=== PATIENT | male | born 1960 ===

== ENCOUNTER 2022-03-16 22:40 | Emergency (ER) | payer SELFPAY | END 2022-03-17 | disposition left against medical advice (07) | LOC: ED 22:40 | DX: R10.9 Unspecified abdominal pain (principal); Z53.21 Procedure and treatment not carried out due to patient leaving prior to being seen by health care provider ==

== ENCOUNTER 2022-03-22 13:11 | Inpatient (IN) | payer SELFPAY ==
[2022-03-22] MEDS ORDERED: SODIUM CHLORIDE 0.9% 1000 ML 1,000 ML IV ONE (14:16)
[2022-03-22 14:37] LABS: Basophils % (Auto) 0.3 % (0.0-1.8); Eosinophils % (Auto) 0.2 % (0.0-4.3); Hematocrit 43.5 % (35.5-45.6); Hemoglobin 13.9 gm/dl (11.8-15.2); Lymphocytes # (Auto) 1.5 K/mm3 (1.2-5.4); Lymphocytes % (Auto) 17.6 % (13.4-35.0); Mean Corpuscular HGB Conc 32 % (32-34); Mean Corpuscular Volume 96 fl (84-94); Monocytes # (Auto) 0.8 K/mm3 (0.0-0.8); Monocytes % (Auto) 9.4 % (0.0-7.3); Platelet Count 325 K/mm3 (140-440); Red Blood Count 4.51 M/mm3 (3.65-5.03); Red Cell Distribution Width 14.2 % (13.2-15.2)
--- NOTE | 2022-03-22 15:14 | XRay Report ---
CHEST 1 VIEW 03/22/2022 2:33 PM INDICATION / CLINICAL INFORMATION: unresponsive. COMPARISON: None available. FINDINGS: SUPPORT DEVICES: None. HEART / MEDIASTINUM: There is mild cardiac enlargement. LUNGS / PLEURA: No significant pulmonary or pleural abnormality. No pneumothorax. ADDITIONAL FINDINGS: Chronic right lateral rib fractures are noted. IMPRESSION: Mild cardiomegaly. Lungs clear. Signer Name: Bogdan Mello Jr, MD Signed: 03/22/2022 3:06 PM Workstation Name: [id number]
[2022-03-22 15:31] LABS: Alanine Aminotransferase 34 units/L (7-56); Albumin 4.7 g/dL (3.9-5); BUN/Creatinine Ratio 20; Blood Urea Nitrogen 18 mg/dL (9-20); Calcium 9.2 mg/dL (8.4-10.2); Hemolysis Index 8
--- NOTE | 2022-03-22 15:43 | Cat Scan Report ---
CT HEAD WITHOUT CONTRAST INDICATION / CLINICAL INFORMATION: unresponsive. TECHNIQUE: Axial imaging performed from the skull apex through the skull base without the use of cont rast. Sagittal and coronal reformatted images. All CT scans at this location are performed using CT dose reduction for ALARA by means of automated exposure control. COMPARISON: None available. FINDINGS: CEREBRAL PARENCHYMA: No acute parenchymal abnormality is identified. There is moderate hypoattenuatio n throughout the white matter consistent with chronic microvascular ischemic disease. Chronic lacunar infarct in the left anterior basal ganglia measures 7-8 mm. No large chronic infarct. HEMORRHAGE: None. EXTRA-AXIAL SPACES: Normal in size and morphology for the patient's age. VENTRICULAR SYSTEM: Normal in size and morphology for the patient's age. MIDLINE SHIFT OR HERNIATION: None. CEREBELLUM / BRAINSTEM: No significant abnormality. CALVARIUM: No significant abnormality. ORBITS: Normal as visualized. PARANASAL SINUSES / MASTOID AIR CELLS: Normal as visualized. SOFT TISSUES of HEAD: No significant abnormality. ADDITIONAL FINDINGS: None. IMPRESSION: No acute intracranial abnormality. Moderate chronic white matter changes. Chronic lacunar infarct in the left basal ganglia. Signer Name: Bogdan Mello Jr, MD Signed: 03/22/2022 3:39 PM Workstation Name: [id number]
[2022-03-22] MEDS ORDERED: cefTRIAXone/NS 1 GM/50 ML 1 GM/50 ML BAG IV ONE (16:45)
--- NOTE | 2022-03-22 16:54 | Emergency Department Report ---
ED General Adult HPI - General Chief complaint: Overdose Stated complaint: OD Time Seen by Provider: 03/22/22 13:49 Source: patient, EMS Mode of arrival: Stretcher Limitations: No Limitations - History of Present Illness Initial comments: Patient presents with complaints of an episode of loss of consciousness that was witnessed by his daughter, who is present @ the bedside and giving collateral hx. Per her, it lasted till EMS arrived and she was performing CPR. It was with convulsive jerking, bowel/urinary incontinence, tongue/lip biting. Patient de nies any dizziness, numbness, weakness VILLASENOR, CP, SOB, palpitations before or after the episode. Also denies any vomiting, diarrhea, hematochezia, bloody or black tarry stools. Per EMS, patient's was breathing 6 breaths/min. He received narcan 3 mg IV total, after which he woke up. - Related Data Allergies Allergy/AdvReac Type Severity Reaction Status Date / Time No Known Allergies Allergy Verified 03/22/22 13:14 ED Review of Systems ROS: Stated complaint: OD Other details as noted in HPI Comment: All other systems reviewed and negative Constitutional: denies: chills, fever ED Past Medical Hx - Past Medical History Previous Medical History?: No ED Physical Exam - General Limitations: No Limitations General appearance: alert, in no apparent distress - Head Head exam: Present: atraumatic, normocephalic - Eye Eye exam: Present: PERRL, EOMI - ENT ENT exam: Present: mucous membranes moist, other (airway patent) - Neck Neck exam: Present: other (supple; no JVD) - Respiratory Respiratory exam: Present: other (good air entry, nml I:E, CTAB, no use of ) - Cardiovascular Cardiovascular Exam: Present: regular rate. Absent: rubs, gallop - GI/Abdominal GI/Abdominal exam: Present: soft, normal bowel sounds. Absent: distended, tenderness - Extremities Exam Extremities exam: Present: full ROM. Absent: tenderness - Back Exam Back exam: Present: full ROM. Absent: tenderness - Neurological Exam Neurological exam: Present: alert, oriented X3, CN II-XII intact, other (GCS 15/15 ([id number])). Absent: motor sensory deficit ED Course Vital Signs 03/22/22 03/22/22 03/22/22 13:12 15:57 16:00 Pulse Rate 96 H 83 83 Respiratory 12 13 Rate Blood Pressure 139/95 Blood Pressure 170/100 [Left] O2 Sat by Pulse 98 94 89 Oximetry 03/22/22 03/22/22 03/22/22 16:12 16:16 16:30 Pulse Rate 85 82 85 Respiratory 16 11 L 11 L Rate Blood Pressure 139/95 138/91 Blood Pressure [Left] O2 Sat by Pulse 95 83 L 94 Oximetry 03/22/22 03/22/22 16:46 17:00 Pulse Rate 84 87 Respiratory 9 L 9 L Rate Blood Pressure 138/91 152/111 Blood Pressure [Left] O2 Sat by Pulse 91 93 Oximetry ED Medical Decision Making - Lab Data Result diagrams: 03/22/22 14:22 03/22/22 14:22 Laboratory Results - last 24 hr 03/22/22 03/22/22 03/22/22 14:22 14:22 14:22 WBC 8.7 RBC 4.51 Hgb 13.9 Hct 43.5 MCV 96 H MCH 31 MCHC 32 RDW 14.2 Plt Count 325 Lymph % (Auto) 17.6 [place] % (Auto) 9.4 H Eos % (Auto) 0.2 Baso % (Auto) 0.3 Lymph # (Auto) 1.5 [place] # (Auto) 0.8 Eos # (Auto) 0.0 Baso # (Auto) 0.0 Seg Neutrophils % 72.5 H Seg Neutrophils # 6.3 Sodium 139 Potassium 3.7 Chloride 100.3 Carbon Dioxide 19 L Anion Gap 23 BUN 18 Creatinine 0.9 Estimated GFR > 60 BUN/Creatinine Ratio 20 Glucose 144 H Lactic Acid 2.90 H* Calcium 9.2 Total Bilirubin 0.40 AST 52 H ALT 34 Alkaline Phosphatase 96 Total Creatine Kinase 491 H Troponin T < 0.010 Total Protein 7.3 Albumin 4.7 Albumin/Globulin Ratio 1.8 Urine Color Urine Turbidity Urine pH Ur Specific [place] Urine Protein Urine Glucose (UA) Urine Ketones Urine Blood Urine Nitrite Urine Bilirubin Urine Urobilinogen Ur Leukocyte Esterase Urine WBC (Auto) Urine RBC (Auto) U Epithel Cells (Auto) Hyaline Casts Urine Mucus Urine Opiates Screen Urine Methadone Screen Ur Barbiturates Screen Ur Phencyclidine Scrn Ur Amphetamines Screen U Benzodiazepines Scrn Urine Cocaine Screen U Marijuana (THC) Screen 03/22/22 03/22/22 03/22/22 17:19 17:19 17:19 WBC RBC Hgb Hct MCV MCH MCHC RDW Plt Count Lymph % (Auto) [place] % (Auto) Eos % (Auto) Baso % (Auto) Lymph # (Auto) [place] # (Auto) Eos # (Auto) Baso # (Auto) Seg Neutrophils % Seg Neutrophils # Sodium Potassium Chloride Carbon Dioxide Anion Gap BUN Creatinine Estimated GFR BUN/Creatinine Ratio Glucose Lactic Acid 1.80 Calcium Total Bilirubin AST ALT Alkaline Phosphatase Total Creatine Kinase Troponin T Total Protein Albumin Albumin/Globulin Ratio Urine Color Yellow Urine Turbidity Clear Urine pH 5.0 Ur Specific [place] 1.017 Urine Protein 100 mg/dl Urine Glucose (UA) 50 Urine Ketones Neg Urine Blood Neg Urine Nitrite Neg Urine Bilirubin Neg Urine Urobilinogen < 2.0 Ur Leukocyte Esterase Neg Urine WBC (Auto) 4.0 Urine RBC (Auto) 3.0 U Epithel Cells (Auto) 1.0 Hyaline Casts 21 Urine Mucus Few Urine Opiates Screen Presumptive negative Urine Methadone Screen Presumptive negative Ur Barbiturates Screen Presumptive negative Ur Phencyclidine Scrn Presumptive negative Ur Amphetamines Screen Presumptive positive U Benzodiazepines Scrn Presumptive negative Urine Cocaine Screen Presumptive negative U Marijuana (THC) Screen Presumptive positive 03/22/22 17:19 WBC RBC Hgb Hct MCV MCH MCHC RDW Plt Count Lymph % (Auto) [place] % (Auto) Eos % (Auto) Baso % (Auto) Lymph # (Auto) [place] # (Auto) Eos # (Auto) Baso # (Auto) Seg Neutrophils % Seg Neutrophils # Sodium Potassium Chloride Carbon Dioxide Anion Gap BUN Creatinine Estimated GFR BUN/Creatinine Ratio Glucose Lactic Acid Calcium Total Bilirubin AST ALT Alkaline Phosphatase Total Creatine Kinase Troponin T 0.020 Total Protein Albumin Albumin/Globulin Ratio Urine Color Urine Turbidity Urine pH Ur Specific [place] Urine Protein Urine Glucose (UA) Urine Ketones Urine Blood Urine Nitrite Urine Bilirubin Urine Urobilinogen Ur Leukocyte Esterase Urine WBC (Auto) Urine RBC (Auto) U Epithel Cells (Auto) Hyaline Casts Urine Mucus Urine Opiates Screen Urine Methadone Screen Ur Barbiturates Screen Ur Phencyclidine Scrn Ur Amphetamines Screen U Benzodiazepines Scrn Urine Cocaine Screen U Marijuana (THC) Screen CXR: no acute cardiopulmonary process EKG #1 @ 14:34-> HR 78, SR, nml CT, narrow QRS, LVH by R in I, ST elevation > 1 mm in V2, <1 mm in V3 with reciprocal J point depressions in II, III, aVF, v5 and V6 EKG #2 @ 17:34-> HR 78, SR, nml CT, narrow QRS, LVH by R in I, ST elevation > 1 mm in V2, <1 mm in V3 with reciprocal J point depressions in II, III, aVF, V4 - V6 - Medical Decision Making Dr. 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 He recommends patient does not meet STEMI criteria @ this time. Critical care attestation.: If time is entered above; I have spent that time in minutes in the direct care of this critically ill patient, excluding procedure time. ED Disposition Clinical Impression: Unresponsive, Abnormal EKG Disposition: ADMITTED INPATIENT Is pt being admited?: Yes Condition: Stable Referrals: PRIMARY CARE, [Primary Care Provider] - 3-5 Days Time of Disposition: 18:00 (Patient admitted to Dr. Gauthier. Sign out was given by me to the admitting physician.)
[2022-03-22 17:35] LABS: Bilirubin,Urine NEG (Negative); Blood,Urine NEG (Negative); Color,Urine Yellow (Yellow); Hyaline Casts,Urine 21 /LPF; Mucus,Urine FEW /HPF; Urobilinogen,Urine < 2.0 mg/dL (<2.0)
[2022-03-22 17:39] LABS: Amphetamine Screen,Urine PRESUMPTIVE POSITIVE; Benzodiazepines Screen,Urine PRESUMPTIVE NEGATIVE; Cannabinoid Screen,Urine PRESUMPTIVE POSITIVE; Cocaine Screen,Urine PRESUMPTIVE NEGATIVE; Methadone Screen,Urine PRESUMPTIVE NEGATIVE; Opiate Screen,Urine PRESUMPTIVE NEGATIVE
[2022-03-22] MEDS ORDERED: oxyCODONE /ACETAMINOPHEN 5-325MG TAB PO PRN (22:07)
[2022-03-22] MEDS ORDERED: HEPARIN 10,000 UNITS/10 ML VIAL IV PRN (22:30)
[2022-03-22] MEDS ORDERED: ACETAMINOPHEN 325 MG TAB PO PRN (23:00)
[2022-03-22] MEDS ORDERED: ONDANSETRON 4 MG/2 ML INJ IV PRN (23:00)
[2022-03-22] MEDS ORDERED: METOCLOPRAMIDE 10 MG/2 ML INJ IV PRN (23:00)
[2022-03-22 23:23] LABS: Hematocrit 43.6 % (35.5-45.6); Hemoglobin 13.9 gm/dl (11.8-15.2)
[2022-03-22 23:32] LABS: INR 0.86 (0.87-1.13); Partial Thromboplastin Time 29.1 Sec. (24.2-36.6)
[2022-03-22 23:39] LABS: Creatine Kinase MB 9.6 ng/mL (0.0-4.0)
[2022-03-23 02:09] LABS: Chol/HDL Ratio 3.8 %
[2022-03-23] MEDS: HEPARIN/ 0.45% NACL DRIP 25,000 UNIT/500 ML BAG IV SCH (03:01)
[2022-03-23 06:28] LABS: Basophils % (Auto) 0.4 % (0.0-1.8); Eosinophils # (Auto) 0.1 K/mm3 (0.0-0.4); Eosinophils % (Auto) 0.7 % (0.0-4.3); Hematocrit 40.8 % (35.5-45.6); Hemoglobin 13.2 gm/dl (11.8-15.2); Lymphocytes # (Auto) 2.5 K/mm3 (1.2-5.4); Lymphocytes % (Auto) 30.3 % (13.4-35.0); Mean Corpuscular HGB Conc 32 % (32-34); Mean Corpuscular Volume 96 fl (84-94); Monocytes # (Auto) 1.1 K/mm3 (0.0-0.8); Monocytes % (Auto) 13.8 % (0.0-7.3); Platelet Count 308 K/mm3 (140-440); Red Blood Count 4.24 M/mm3 (3.65-5.03); Red Cell Distribution Width 14.4 % (13.2-15.2)
[2022-03-23] MEDS: MORPHINE 2 MG/1 ML INJ IV PRN ×2 (06:38→11:07)
[2022-03-23 06:48] LABS: Creatine Kinase MB 11.4 ng/mL (0.0-4.0)
[2022-03-23 06:50] LABS: Alanine Aminotransferase 30 units/L (7-56); Albumin 4.4 g/dL (3.9-5); BUN/Creatinine Ratio 21; Blood Urea Nitrogen 17 mg/dL (9-20); Calcium 9.3 mg/dL (8.4-10.2); Hemolysis Index 25
--- NOTE | 2022-03-23 07:35 | History and Physical Report ---
History of Present Illness Date of examination: 03/22/22 Date of admission: 03/22/22 22:07 Chief complaint: Last dose of maintenance History of present illness: 61-year-old with no significant past medical history was found with less responsiveness. Witnessed by daughter. Patient started CPR until EMS arrived. As per granddaughter patient had convulsive jerking movements and bowel and urinary incontinence and tongue/lip biting. This could not be confirmed by me during my history taking. No nausea or vomiting. No chest pain. Syncope present. Patient does marijuana on a regular basis.Cardiac history in the past. Had 1 stent 8 months ago Not on any medications. No chest pain. Lactic acid was elevated. Apparently unresponsive for 5 minutes. Had a stent 8 months ago secondary to [place] in [place]. Also a skin graft on the right heel secondary to injury. 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 Skin no rash no itching Psychiatric no depression no homicidal or suicidal tendencies Hematologic no lymphedema or bruising Endocrine no polydipsia no polyuria no cold intolerance no heat intolerance Medications and Allergies Allergies Allergy/AdvReac Type Severity Reaction Status Date / Time No Known Allergies Allergy Verified 03/22/22 13:14 Active Meds: Active Medications Acetaminophen (Acetaminophen 325 Mg Tab) 650 mg PO Q4H PRN PRN Reason: Pain MILD(1-3)/Fever >100.5/VILLASENOR Famotidine (Famotidine 20 Mg/2 Ml Inj) 20 mg IV BID TATYANA Heparin Sodium (Porcine) (Heparin 10,000 Units/10 Ml Vial) 2,400 unit 40 unit/kg (2400 unit) IV Q6H PRN PRN Reason: Anti-Xa Assay < 0.1 units/ml Dextrose/Sodium Chloride (D5ns) 1,000 mls @ 100 mls/hr IV DIRECT TATYANA Heparin Sodium/Sodium Chloride (Heparin/ 0.45% Nacl-25,000 Unit/500 Ml) 25,000 unit in 500 mls @ 18 mls/hr IV TITRATE TATYANA; Protocol Last Admin: 03/23/22 03:01 Dose: 900 units/hr, 18 mls/hr Metoclopramide HCl (Metoclopramide 10 Mg/2 Ml Inj) 10 mg IV Q6H PRN PRN Reason: Nausea And Vomiting Morphine Sulfate (Morphine 2 Mg/1 Ml Inj) 2 mg IV Q4H PRN PRN Reason: Pain, Moderate (4-6) Last Admin: 03/23/22 06:38 Dose: 2 mg Ondansetron HCl (Ondansetron 4 Mg/2 Ml Inj) 4 mg IV Q8H PRN PRN Reason: Nausea And Vomiting Oxycodone/Acetaminophen (Oxycodone /Acetaminophen 5-325mg Tab) 1 tab PO Q6H PRN PRN Reason: Pain, Moderate (4-6) Sodium Chloride (Sodium Chloride 0.9% 10 Ml Flush Syringe) 10 ml IV BID TATYANA Sodium Chloride (Sodium Chloride 0.9% 10 Ml Flush Syringe) 10 ml IV PRN PRN PRN Reason: LINE FLUSH Exam - Constitutional Vitals: Temp Pulse Resp BP Pulse Ox 97.5 F L 79 16 158/98 92 03/23/22 04:00 03/23/22 04:00 03/23/22 04:00 03/23/22 04:00 03/23/22 04:00 General appearance: Present: no acute distress, well-nourished - EENT Eyes: Present: PERRL ENT: hearing intact, clear oral mucosa - Neck Neck: Present: supple, normal ROM - Respiratory Respiratory effort: normal Respiratory: bilateral: CTA - Cardiovascular Heart rate: 83 Rhythm: regular Heart Sounds: Present: S1 & S2. Absent: rub, click - Extremities Extremities: pulses symmetrical, No edema Peripheral Pulses: within normal limits - Abdominal General gastrointestinal: Present: soft, non-tender, non-distended, normal bowel sounds Male genitourinary: Present: normal - Integumentary Integumentary: Present: clear, warm, dry - Musculoskeletal Musculoskeletal: gait normal, strength equal bilaterally - Psychiatric Psychiatric: appropriate mood/affect, intact judgment & insight - Neurologic Neurologic: CNII-XII intact, moves all extremities HEART Score - HEART Score History: Moderately suspicious Age: 45-65 Risk factors: 1-2 risk factors Troponin: Troponin T 0.082 ng/mL (0.00-0.029) H D 03/23/22 05:58 Troponin: < normal limit - Critical Actions Critical Actions: 4-6 pts:12-16.6% risk of adverse cardiac event. Should be admitted Results - Labs CBC & Chem 7: 03/23/22 05:58 03/23/22 05:58 Labs: Laboratory Last Values WBC 8.3 K/mm3 (4.5-11.0) 03/23/22 05:58 RBC 4.24 M/mm3 (3.65-5.03) 03/23/22 05:58 Hgb 13.2 gm/dl (11.8-15.2) 03/23/22 05:58 Hct 40.8 % (35.5-45.6) 03/23/22 05:58 MCV 96 fl (84-94) H 03/23/22 05:58 MCH 31 pg (28-32) 03/23/22 05:58 MCHC 32 % (32-34) 03/23/22 05:58 RDW 14.4 % (13.2-15.2) 03/23/22 05:58 Plt Count 308 K/mm3 (140-440) 03/23/22 05:58 Lymph % (Auto) 30.3 % (13.4-35.0) 03/23/22 05:58 [place] % (Auto) 13.8 % (0.0-7.3) H 03/23/22 05:58 Eos % (Auto) 0.7 % (0.0-4.3) 03/23/22 05:58 Baso % (Auto) 0.4 % (0.0-1.8) 03/23/22 05:58 Lymph # (Auto) 2.5 K/mm3 (1.2-5.4) 03/23/22 05:58 [place] # (Auto) 1.1 K/mm3 (0.0-0.8) H 03/23/22 05:58 Eos # (Auto) 0.1 K/mm3 (0.0-0.4) 03/23/22 05:58 Baso # (Auto) 0.0 K/mm3 (0.0-0.1) 03/23/22 05:58 Seg Neutrophils % 54.8 % (40.0-70.0) 03/23/22 05:58 Seg Neutrophils # 4.5 K/mm3 (1.8-7.7) 03/23/22 05:58 PT 12.6 Sec. (12.2-14.9) 03/22/22 23:12 INR 0.86 (0.87-1.13) L 03/22/22 23:12 APTT 29.1 Sec. (24.2-36.6) 03/22/22 23:12 Sodium 137 mmol/L (137-145) 03/23/22 05:58 Potassium 4.2 mmol/L (3.6-5.0) 03/23/22 05:58 Chloride 98.9 mmol/L (98-107) 03/23/22 05:58 Carbon Dioxide 25 mmol/L (22-30) 03/23/22 05:58 Anion Gap 17 mmol/L 03/23/22 05:58 BUN 17 mg/dL (9-20) 03/23/22 05:58 Creatinine 0.8 mg/dL (0.8-1.3) 03/23/22 05:58 Estimated GFR > 60 ml/min 03/23/22 05:58 BUN/Creatinine Ratio 21 % 03/23/22 05:58 Glucose 127 mg/dL (75-100) H 03/23/22 05:58 Lactic Acid 1.80 mmol/L (0.7-2.0) 03/22/22 17:19 Calcium 9.3 mg/dL (8.4-10.2) 03/23/22 05:58 Total Bilirubin 0.70 mg/dL (0.1-1.2) 03/23/22 05:58 AST 42 units/L (5-40) H 03/23/22 05:58 ALT 30 units/L (7-56) 03/23/22 05:58 Alkaline Phosphatase 95 units/L (35-129) 03/23/22 05:58 Total Creatine Kinase 403 units/L (55-170) H 03/23/22 05:58 CK-MB (CK-2) 11.4 ng/mL (0.0-4.0) H 03/23/22 05:58 CK-MB (CK-2) Rel Index 2.8 (0-4) 03/23/22 05:58 Troponin T 0.082 ng/mL (0.00-0.029) H D 03/23/22 05:58 Total Protein 7.0 g/dL (6.3-8.2) 03/23/22 05:58 Albumin 4.4 g/dL (3.9-5) 03/23/22 05:58 Albumin/Globulin Ratio 1.7 % 03/23/22 05:58 Triglycerides 57 mg/dL (2-149) 03/22/22 22:17 Cholesterol 236 mg/dL (50-199) H 03/22/22 22:17 LDL Cholesterol Direct 156 mg/dL (50-130) H 03/22/22 22:17 HDL Cholesterol 62 mg/dL (40-59) H 03/22/22 22:17 Cholesterol/HDL Ratio 3.80 % 03/22/22 22:17 Urine Color Yellow (Yellow) 03/22/22 17:19 Urine Turbidity Clear (Clear) 03/22/22 17:19 Urine pH 5.0 (5.0-7.0) 03/22/22 17:19 Ur Specific [place] 1.017 (1.003-1.030) 03/22/22 17:19 Urine Protein 100 mg/dl mg/dL (Negative) 03/22/22 17:19 Urine Glucose (UA) 50 mg/dL (Negative) 03/22/22 17:19 Urine Ketones Neg mg/dL (Negative) 03/22/22 17:19 Urine Blood Neg (Negative) 03/22/22 17:19 Urine Nitrite Neg (Negative) 03/22/22 17:19 Urine Bilirubin Neg (Negative) 03/22/22 17:19 Urine Urobilinogen < 2.0 mg/dL (<2.0) 03/22/22 17:19 Ur Leukocyte Esterase Neg (Negative) 03/22/22 17:19 Urine WBC (Auto) 4.0 /HPF (0.0-6.0) 03/22/22 17:19 Urine RBC (Auto) 3.0 /HPF (0.0-6.0) 03/22/22 17:19 U Epithel Cells (Auto) 1.0 /HPF (0-13.0) 03/22/22 17:19 Hyaline Casts 21 /LPF 03/22/22 17:19 Urine Mucus Few /HPF 03/22/22 17:19 Urine Opiates Screen Presumptive negative 03/22/22 17:19 Urine Methadone Screen Presumptive negative 03/22/22 17:19 Ur Barbiturates Screen Presumptive negative 03/22/22 17:19 Ur Phencyclidine Scrn Presumptive negative 03/22/22 17:19 Ur Amphetamines Screen Presumptive positive 03/22/22 17:19 U Benzodiazepines Scrn Presumptive negative 03/22/22 17:19 Urine Cocaine Screen Presumptive negative 03/22/22 17:19 U Marijuana (THC) Screen Presumptive positive 03/22/22 17:19 Drugs of Abuse Note Disclamer 03/22/22 17:19 Short CBC 03/22/22 03/22/22 03/23/22 Range/Units 14:22 23:12 05:58 WBC 8.7 8.3 (4.5-11.0) K/mm3 Hgb 13.9 13.9 13.2 (11.8-15.2) gm/dl Hct 43.5 43.6 40.8 (35.5-45.6) % Plt Count 325 318 308 (140-440) K/mm3 BMP 03/22/22 03/23/22 14:22 05:58 Sodium 139 137 Potassium 3.7 4.2 Chloride 100.3 98.9 Carbon Dioxide 19 L 25 BUN 18 17 Creatinine 0.9 0.8 Glucose 144 H 127 H Calcium 9.2 9.3 Cardiac Enzymes 03/22/22 03/22/22 03/22/22 Range/Units 14:22 17:19 22:17 Total Creatine Kinase 491 H 442 H (55-170) units/L CK-MB (CK-2) 9.6 H (0.0-4.0) ng/mL Troponin T < 0.010 0.020 0.051 H D (0.00-0.029) ng/mL 03/23/22 Range/Units 05:58 Total Creatine Kinase 403 H (55-170) units/L CK-MB (CK-2) 11.4 H (0.0-4.0) ng/mL Troponin T 0.082 H D (0.00-0.029) ng/mL Liver Function 03/22/22 03/23/22 Range/Units 14:22 05:58 Total Bilirubin 0.40 0.70 (0.1-1.2) mg/dL AST 52 H 42 H (5-40) units/L ALT 34 30 (7-56) units/L Alkaline Phosphatase 96 95 (35-129) units/L Albumin 4.7 4.4 (3.9-5) g/dL Urine 03/22/22 Range/Units 17:19 Urine Color Yellow (Yellow) Urine pH 5.0 (5.0-7.0) Ur Specific [place] 1.017 (1.003-1.030) Urine Protein 100 mg/dl (Negative) mg/dL Urine Glucose (UA) 50 (Negative) mg/dL Microbiology: Microbiology 03/22/22 14:22 Peripheral/Venous Blood Culture - Preliminary Culture in Progress 03/22/22 14:22 Peripheral/Venous Blood Culture - Preliminary Culture in Progress - Imaging and Cardiology EKG: report reviewed (EKG shows ST depressions in V4 V5 and V6, LVH and repolarization abnormalities) Chest x-ray: report reviewed (No acute findings) Assessment and Plan Advance Directives: Yes (Full code) VTE prophylaxis?: Chemical Plan of care discussed with patient/family: Yes - Patient Problems (1) NSTEMI (non-ST elevated myocardial infarction) Current Visit: Yes Status: Acute Plan to address problem: Because of EKG findings patient being treated as NSTEMI Cardiology was consulted Patient started on heparin drip Serial troponins (2) Syncope and collapse Current Visit: Yes Status: Acute Plan to address problem: Syncope work-up Echocardiogram and carotid duplex scan (3) Elevated lactic acid level Current Visit: Yes Status: Acute Plan to address problem: No source of infection Probably secondary to cardiac compressions with the daughter for 5 minutes (4) Hyperlipidemia Current Visit: Yes Status: Chronic Qualifiers: Hyperlipidemia type: mixed hyperlipidemia Qualified Code(s): E78.2 - Mixed hyperlipidemia Plan to address problem: Initiated on statins (5) Polysubstance abuse Current Visit: Yes Status: Acute Plan to address problem: Patient has marijuana and amphetamines on board Patient and daughter consult Daughter denies amphetamine use (6) DVT prophylaxis Current Visit: Yes Status: Acute Plan to address problem: On heparin and GI prophylaxis (7) Advance care planning Current Visit: Yes Status: Acute Plan to address problem: Disease education conducted, care plan discussed, diagnosis discussed, prognosis discussed. Patient is full code. Patient acknowledges understanding and agreement with care plan. +30 minutes.
[2022-03-23] MEDS ORDERED: REGADENOSON 0.4 MG/5 ML INJ IV ONE (07:50)
--- NOTE | 2022-03-23 09:53 | Consultation ---
History of Present Illness Consult date: 03/23/22 Consult reason: syncope History of present illness: Patient is a 61-year-old man who presented to the emergency room following a syn copal episode. He states that he was cutting down trees, when he suddenly felt lightheaded and became unconscious. He did not know what happened afterwards until he woke up in the ambulance. It was reported that he received bystander CPR as well as Narcan by the sleep scientist. Despite a report of his resuscitation by Narcan, the patient denies that he used any narcotic substances prior to the event. Instead, in the 2 days prior to the event, he had experienced exertional dyspnea and excessive perspiration and diaphoresis. He denies chest pain, and did not experience palpitations. The patient has an extensive recent cardiac history. 8 months ago, he was in [facility] where he states he suffered a myocardial infarction, followed by invasive coronary evaluation and coronary stent implantation. Following that, he was discharged on medical therapy, but admits he stopped taking his medications after just 1 week. Additionally, he has not been compliant with outpatient cardiac or medical follow-up, and has continued to smoke cigarettes. EKG is a sinus rhythm, left anterior fascicular block, left ventricle hypertrophy, a cardiomyopathic appearing EKG. Chest x-ray shows moderate to severe cardiomegaly, but clear lung nogueira, no significant interstitial edema. Past History Past Medical History: acute NM, CAD, COPD, hypertension, other (Tobacco abuse) Past Surgical History: PTCA Medications and Allergies Allergies Allergy/AdvReac Type Severity Reaction Status Date / Time No Known Allergies Allergy Verified 03/22/22 13:14 Active Meds: Active Medications Acetaminophen (Acetaminophen 325 Mg Tab) 650 mg PO Q4H PRN PRN Reason: Pain MILD(1-3)/Fever >100.5/VILLASENOR Aspirin (Aspirin Ec 81 Mg Tab) 81 mg PO QDAY TATYANA Atorvastatin Calcium (Atorvastatin 40 Mg Tab) 40 mg PO QHS TATYANA Clopidogrel Bisulfate (Clopidogrel 300 Mg Tab) 300 mg PO ONCE ONE Stop: 03/23/22 09:45 Clopidogrel Bisulfate (Clopidogrel 75 Mg Tab) 75 mg PO QDAY TATYANA Famotidine (Famotidine 20 Mg/2 Ml Inj) 20 mg IV BID TATYANA Heparin Sodium (Porcine) (Heparin 10,000 Units/10 Ml Vial) 2,400 unit 40 unit/kg (2400 unit) IV Q6H PRN PRN Reason: Anti-Xa Assay < 0.1 units/ml Dextrose/Sodium Chloride (D5ns) 1,000 mls @ 100 mls/hr IV DIRECT TATYANA Heparin Sodium/Sodium Chloride (Heparin/ 0.45% Nacl-25,000 Unit/500 Ml) 25,000 unit in 500 mls @ 18 mls/hr IV TITRATE TATYANA; Protocol Last Admin: 03/23/22 03:01 Dose: 900 units/hr, 18 mls/hr Losartan Potassium (Losartan 50 Mg Tab) 50 mg PO QDAY [facility] Metoclopramide HCl (Metoclopramide 10 Mg/2 Ml Inj) 10 mg IV Q6H PRN PRN Reason: Nausea And Vomiting Metoprolol Tartrate (Metoprolol Tartrate 50 Mg Tab) 50 mg PO BID [facility] Morphine Sulfate (Morphine 2 Mg/1 Ml Inj) 2 mg IV Q4H PRN PRN Reason: Pain, Moderate (4-6) Last Admin: 03/23/22 06:38 Dose: 2 mg Ondansetron HCl (Ondansetron 4 Mg/2 Ml Inj) 4 mg IV Q8H PRN PRN Reason: Nausea And Vomiting Oxycodone/Acetaminophen (Oxycodone /Acetaminophen 5-325mg Tab) 1 tab PO Q6H PRN PRN Reason: Pain, Moderate (4-6) Sodium Chloride (Sodium Chloride 0.9% 10 Ml Flush Syringe) 10 ml IV BID [facility] Sodium Chloride (Sodium Chloride 0.9% 10 Ml Flush Syringe) 10 ml IV PRN PRN PRN Reason: LINE FLUSH Spironolactone (Spironolactone 25 Mg Tab) 25 mg PO QDAY [facility] Review of Systems Cardiovascular: syncope, lightheadedness, shortness of breath, no chest pain, no orthopnea, no palpitations, no rapid/irregular heart beat, no edema Physical Examination Vital Signs Pulse BP Pulse Ox 96 H 170/100 98 03/22/22 13:12 03/22/22 13:12 03/22/22 13:12 General appearance: no acute distress HEENT: Positive: PERRL Neck: Positive: neck supple Cardiac: Positive: Reg Rate and Rhythm Lungs: Positive: Decreased Breath Sounds Neuro: Positive: Grossly Intact Abdomen: Positive: Soft Male genitourinary: Positive: deferred Skin: Positive: Clear Extremities: Absent: edema Results 05/19/22 05:58 03/23/22 05:58 Cardiac Enzymes 03/22/22 03/22/22 03/23/22 Range/Units 14:22 22:17 05:58 AST 52 H 42 H (5-40) units/L CK-MB (CK-2) 9.6 H 11.4 H (0.0-4.0) ng/mL Coagulation 03/22/22 Range/Units 23:12 PT 12.6 (12.2-14.9) Sec. INR 0.86 L (0.87-1.13) APTT 29.1 (24.2-36.6) Sec. Lipids 03/22/22 Range/Units 22:17 Triglycerides 57 (2-149) mg/dL Cholesterol 236 H (50-199) mg/dL HDL Cholesterol 62 H (40-59) mg/dL Cholesterol/HDL Ratio 3.80 % CBC 03/22/22 03/22/22 03/23/22 Range/Units 14: 23:12 05:58 WBC 8.7 8.3 (4.5-11.0) K/mm3 RBC 4.51 4.24 (3.65-5.03) M/mm3 Hgb 13.9 13.9 13.2 (11.8-15.2) gm/dl Hct 43.5 43.6 40.8 (35.5-45.6) % Plt Count 325 318 308 (140-440) K/mm3 Lymph # (Auto) 1.5 2.5 (1.2-5.4) K/mm3 Casey # (Auto) 0.8 1.1 H (0.0-0.8) K/mm3 Eos # (Auto) 0.0 0.1 (0.0-0.4) K/mm3 Baso # (Auto) 0.0 0.0 (0.0-0.1) K/mm3 Comprehensive Metabolic Panel 03/22/22 03/23/22 Range/Units 14:22 05:58 Sodium 139 137 (137-145) mmol/L Potassium 3.7 4.2 (3.6-5.0) mmol/L Chloride 100.3 98.9 (98-107) mmol/L Carbon Dioxide 19 L 25 (22-30) mmol/L BUN 18 17 (9-20) mg/dL Creatinine 0.9 0.8 (0.8-1.3) mg/dL Glucose 144 H 127 H (75-100) mg/dL Calcium 9.2 9.3 (8.4-10.2) mg/dL AST 52 H 42 H (5-40) units/L ALT 34 30 (7-56) units/L Alkaline Phosphatase 96 95 (35-129) units/L Total Protein 7.3 7.0 (6.3-8.2) g/dL Albumin 4.7 4.4 (3.9-5) g/dL EKG interpretations - Telemetry EKG Rhythm: Sinus Rhythm (With left anterior fascicular block, left ventricle hypertrophy) Assessment and Plan - Patient Problems (1) Syncope Current Visit: Yes Status: Acute Plan to address problem: Patient presents with exertional syncope, resuscitated in the field following bystander CPR. He has a history of myocardial infarction, and coronary stent placement 8 months ago, has been noncompliant with prescribed medical therapy, has continued to smoke cigarettes. EKG and enlarged cardiac silhouette on chest x-ray suggest an underlying cardiomyopathy. The patient denies any narcotic use despite a report of a favorable response to Narcan administered in the field. At this time, I will be highly concerned with a cardiogenic syncope, given underlying coronary disease and cardiomyopathy, noncompliance issues, and prodrome of exertional dyspnea, fatigue and diaphoresis. We will I have canceled the stress test, we will get an echocardiogram for left ventricular function assessment, resume guideline directed medical therapy including dual oral antiplatelet therapy. Ultimately may need invasive reassessment of coronaries for late stent thrombosis followed by LifeVest monitoring.
--- NOTE | 2022-03-23 10:08 | Progress Note ---
Assessment and Plan Assessment and plan: -- NSTEMI (non-ST elevated myocardial infarction) Because of EKG findings patient being treated as NSTEMI Cardiology was consulted Patient started on heparin drip Serial troponins --Syncope and collapse/autonomic dysfunction Syncope work-up Echocardiogram and carotid duplex scan --Elevated lactic acid level No source of infection Probably secondary to cardiac compressions with the daughter for 5 minutes -- Hyperlipidemia Initiated on statins -- Polysubstance abuse Patient has marijuana and amphetamines on board Patient and daughter consult Daughter denies amphetamine use -- DVT prophylaxis On heparin and GI prophylaxis --Advance care planning Disease education conducted, care plan discussed, diagnosis discussed, prognosis discussed. Patient is full code. Patient acknowledges understanding and agreement with care plan. +30 minutes. We will closely monitor the patient and adjust the management as needed Plan of care reviewed with the patient and his nurse History Interval history: I have seen and examined the patient at the bedside this morning Patient's chart and medications reviewed No new events reported by the nursing Vital signs noted No new episodes of syncope Patient is on fall precautions Hospitalist Physical - Constitutional Vitals: Temp Pulse Resp BP Pulse Ox 97.2 F L 77 18 156/109 93 03/23/22 08:03 03/23/22 08:03 03/23/22 08:03 03/23/22 08:03 03/23/22 08:03 General appearance: Present: no acute distress, well-nourished - EENT Eyes: Present: PERRL, EOM intact - Neck Neck: Present: supple, normal ROM - Respiratory Respiratory effort: normal Respiratory: bilateral: diminished, negative: rales, rhonchi, wheezing - Cardiovascular Rhythm: regular Heart Sounds: Present: S1 & S2 - Extremities Extremities: no ischemia, No edema - Abdominal General gastrointestinal: soft, non-tender, non-distended, normal bowel sounds - Integumentary Integumentary: Present: clear, warm - Psychiatric Psychiatric: appropriate mood/affect, cooperative - Neurologic Neurologic: CNII-XII intact, moves all extremities HEART Score - HEART Score Age: 45-65 Risk factors: 1-2 risk factors Troponin: Troponin T 0.082 ng/mL (0.00-0.029) H D 03/23/22 05:58 Troponin: < normal limit - Critical Actions Critical Actions: 4-6 pts:12-16.6% risk of adverse cardiac event. Should be admitted Results - Labs CBC & Chem 7: 03/24/22 06:01 03/23/22 05:58 Labs: Laboratory Last Values WBC 8.3 K/mm3 (4.5-11.0) 03/23/22 05:58 RBC 4.24 M/mm3 (3.65-5.03) 03/23/22 05:58 Hgb 13.2 gm/dl (11.8-15.2) 03/23/22 05:58 Hct 40.8 % (35.5-45.6) 03/23/22 05:58 MCV 96 fl (84-94) H 03/23/22 05:58 MCH 31 pg (28-32) 03/23/22 05:58 MCHC 32 % (32-34) 03/23/22 05:58 RDW 14.4 % (13.2-15.2) 03/23/22 05:58 Plt Count 308 K/mm3 (140-440) 03/23/22 05:58 Lymph % (Auto) 30.3 % (13.4-35.0) 03/23/22 05:58 Cole % (Auto) 13.8 % (0.0-7.3) H 03/23/22 05:58 Eos % (Auto) 0.7 % (0.0-4.3) 03/23/22 05:58 Baso % (Auto) 0.4 % (0.0-1.8) 03/23/22 05:58 Lymph # (Auto) 2.5 K/mm3 (1.2-5.4) 03/23/22 05:58 Cole # (Auto) 1.1 K/mm3 (0.0-0.8) H 03/23/22 05:58 Eos # (Auto) 0.1 K/mm3 (0.0-0.4) 03/23/22 05:58 Baso # (Auto) 0.0 K/mm3 (0.0-0.1) 03/23/22 05:58 Seg Neutrophils % 54.8 % (40.0-70.0) 03/23/22 05:58 Seg Neutrophils # 4.5 K/mm3 (1.8-7.7) 03/23/22 05:58 PT 12.6 Sec. (12.2-14.9) 03/22/22 23:12 INR 0.86 (0.87-1.13) L 03/22/22 23:12 APTT 29.1 Sec. (24.2-36.6) 03/22/22 23:12 Sodium 137 mmol/L (137-145) 03/23/22 05:58 Potassium 4.2 mmol/L (3.6-5.0) 03/23/22 05:58 Chloride 98.9 mmol/L (98-107) 03/23/22 05:58 Carbon Dioxide 25 mmol/L (22-30) 03/23/22 05:58 Anion Gap 17 mmol/L 03/23/22 05:58 BUN 17 mg/dL (9-20) 03/23/22 05:58 Creatinine 0.8 mg/dL (0.8-1.3) 03/23/22 05:58 Estimated GFR > 60 ml/min 03/23/22 05:58 BUN/Creatinine Ratio 21 % 03/23/22 05:58 Glucose 127 mg/dL (75-100) H 03/23/22 05:58 Lactic Acid 1.80 mmol/L (0.7-2.0) 03/22/22 17:19 Calcium 9.3 mg/dL (8.4-10.2) 03/23/22 05:58 Total Bilirubin 0.70 mg/dL (0.1-1.2) 03/23/22 05:58 AST 42 units/L (5-40) H 03/23/22 05:58 ALT 30 units/L (7-56) 03/23/22 05:58 Alkaline Phosphatase 95 units/L (35-129) 03/23/22 05:58 Total Creatine Kinase 403 units/L (55-170) H 03/23/22 05:58 CK-MB (CK-2) 11.4 ng/mL (0.0-4.0) H 03/23/22 05:58 CK-MB (CK-2) Rel Index 2.8 (0-4) 03/23/22 05:58 Troponin T 0.082 ng/mL (0.00-0.029) H D 03/23/22 05:58 Total Protein 7.0 g/dL (6.3-8.2) 03/23/22 05:58 Albumin 4.4 g/dL (3.9-5) 03/23/22 05:58 Albumin/Globulin Ratio 1.7 % 03/23/22 05:58 Triglycerides 57 mg/dL (2-149) 03/22/22 22:17 Cholesterol 236 mg/dL (50-199) H 03/22/22 22:17 LDL Cholesterol Direct 156 mg/dL (50-130) H 03/22/22 22:17 HDL Cholesterol 62 mg/dL (40-59) H 03/22/22 22:17 Cholesterol/HDL Ratio 3.80 % 03/22/22 22:17 Urine Color Yellow (Yellow) 03/22/22 17:19 Urine Turbidity Clear (Clear) 03/22/22 17:19 Urine pH 5.0 (5.0-7.0) 03/22/22 17:19 Ur Specific [place] 1.017 (1.003-1.030) 03/22/22 17:19 Urine Protein 100 mg/dl mg/dL (Negative) 03/22/22 17:19 Urine Glucose (UA) 50 mg/dL (Negative) 03/22/22 17:19 Urine Ketones Neg mg/dL (Negative) 03/22/22 17:19 Urine Blood Neg (Negative) 03/22/22 17:19 Urine Nitrite Neg (Negative) 03/22/22 17:19 Urine Bilirubin Neg (Negative) 03/22/22 17:19 Urine Urobilinogen < 2.0 mg/dL (<2.0) 03/22/22 17:19 Ur Leukocyte Esterase Neg (Negative) 03/22/22 17:19 Urine WBC (Auto) 4.0 /HPF (0.0-6.0) 03/22/22 17:19 Urine RBC (Auto) 3.0 /HPF (0.0-6.0) 03/22/22 17:19 U Epithel Cells (Auto) 1.0 /HPF (0-13.0) 03/22/22 17:19 Hyaline Casts 21 /LPF 03/22/22 17:19 Urine Mucus Few /HPF 03/22/22 17:19 Urine Opiates Screen Presumptive negative 03/22/22 17:19 Urine Methadone Screen Presumptive negative 03/22/22 17:19 Ur Barbiturates Screen Presumptive negative 03/22/22 17:19 Ur Phencyclidine Scrn Presumptive negative 03/22/22 17:19 Ur Amphetamines Screen Presumptive positive 03/22/22 17:19 U Benzodiazepines Scrn Presumptive negative 03/22/22 17:19 Urine Cocaine Screen Presumptive negative 03/22/22 17:19 U Marijuana (THC) Screen Presumptive positive 03/22/22 17:19 Drugs of Abuse Note Disclamer 03/22/22 17:19 Microbiology: Microbiology 03/22/22 14:22 Peripheral/Venous Blood Culture - Preliminary Culture in Progress 03/22/22 14:22 Peripheral/Venous Blood Culture - Preliminary Culture in Progress Active Medications - Current Medications Current Medications: Generic Name Dose Route Start Last Admin Trade Name Freq PRN Reason Stop Dose Admin Acetaminophen 650 mg 03/22/22 23:00 Acetaminophen 325 Mg Tab PO Q4H PRN Pain MILD(1-3)/Fever >100.5/VILLASENOR Aspirin 81 mg 03/23/22 10:00 Aspirin Ec 81 Mg Tab PO QDAY [facility] Atorvastatin Calcium 40 mg 03/23/22 22:00 Atorvastatin 40 Mg Tab PO QHS [facility] Clopidogrel Bisulfate 300 mg 03/23/22 11:00 Clopidogrel 300 Mg Tab PO 03/23/22 11:01 ONCE ONE Clopidogrel Bisulfate 75 mg 03/24/22 10:00 Clopidogrel 75 Mg Tab PO QDAY [facility] Famotidine 20 mg 03/22/22 23:00 Famotidine 20 Mg/2 Ml Inj IV BID [facility] Heparin Sodium (Porcine) 2,400 unit 03/22/22 22:30 Heparin 10,000 Units/10 Ml Vial 40 unit/kg (2400 unit) IV Q6H PRN Anti-Xa Assay < 0.1 units/ml Dextrose/Sodium Chloride 1,000 mls @ 100 mls/hr 03/22/22 23:00 D5ns IV DIRECT [facility] Heparin Sodium/Sodium Chloride 25,000 unit in 500 mls @ 18 mls/hr 03/22/22 23:00 03/23/22 03:01 Heparin/ 0.45% Nacl-25,000 Unit/500 Ml IV 900 units/hr TITRATE TATYANA 18 mls/hr Administration Protocol 900 UNITS/HR Sodium Chloride 500 mls @ 50 mls/hr 03/23/22 11:00 Nacl 0.9% 500 Ml IV 03/23/22 20:59 DIRECT [facility] Losartan Potassium 50 mg 03/23/22 12:00 Losartan 50 Mg Tab PO QDAY [facility] Metoclopramide HCl 10 mg 03/22/22 23:00 Metoclopramide 10 Mg/2 Ml Inj IV Q6H PRN Nausea And Vomiting Metoprolol Tartrate 50 mg 03/23/22 12:00 Metoprolol Tartrate 50 Mg Tab PO BID [facility] Morphine Sulfate 2 mg 03/22/22 23:00 03/23/22 06:38 Morphine 2 Mg/1 Ml Inj IV 2 mg Q4H PRN Administration Pain, Moderate (4-6) Ondansetron HCl 4 mg 03/22/22 23:00 Ondansetron 4 Mg/2 Ml Inj IV Q8H PRN Nausea And Vomiting Oxycodone/Acetaminophen 1 tab 03/22/22 22:07 Oxycodone /Acetaminophen 5-325mg Tab PO Q6H PRN Pain, Moderate (4-6) Sodium Chloride 10 ml 03/23/22 10:00 Sodium Chloride 0.9% 10 Ml Flush Syringe IV BID [facility] Sodium Chloride 10 ml 03/22/22 23:00 Sodium Chloride 0.9% 10 Ml Flush Syringe IV PRN PRN LINE FLUSH Spironolactone 25 mg 03/23/22 12:00 Spironolactone 25 Mg Tab PO QDAY [facility]
[2022-03-23] MEDS ORDERED: CLOPIDOGREL 300 MG TAB PO ONE (11:00)
[2022-03-23] MEDS ORDERED: SODIUM CHLORIDE 0.9% 500 ML 500 ML IV SCH (11:00)
[2022-03-23] MEDS: METOPROLOL TARTRATE 50 MG TAB PO SCH ×2 (11:06→21:35)
[2022-03-23] MEDS: FAMOTIDINE 20 MG/2 ML INJ IV SCH ×2 (11:06→21:34)
[2022-03-23] MEDS: LOSARTAN 50 MG TAB PO SCH (11:06)
[2022-03-23] MEDS: SPIRONOLACTONE 25 MG TAB PO SCH (11:06)
[2022-03-23] MEDS: ASPIRIN EC 81 MG TAB PO SCH (11:06)
[2022-03-23] MEDS: D5W/0.9% NACL 1,000 ML IV SCH ×2 (11:15→23:16)
[2022-03-23 11:35] LABS: Creatine Kinase MB 9.8 ng/mL (0.0-4.0)
[2022-03-23] MEDS ORDERED: HEPARIN 10,000 UNITS/10 ML VIAL IV ONE (13:10)
[2022-03-24] MEDS: HEPARIN/ 0.45% NACL DRIP 25,000 UNIT/500 ML BAG IV SCH (06:16)
[2022-03-24 06:30] LABS: Hematocrit 39.5 % (35.5-45.6); Hemoglobin 12.8 gm/dl (11.8-15.2)
[2022-03-24] MEDS ORDERED: SODIUM CHLORIDE 0.9% 500 ML 0 ML ONE (07:21)
[2022-03-24] MEDS: ASPIRIN EC 81 MG TAB PO SCH ×2 (07:26→10:56)
[2022-03-24] MEDS ORDERED: HEPARIN 10,000 UNITS/10 ML VIAL ONE (07:45)
[2022-03-24] MEDS ORDERED: HEPARIN/NS 5000 UNIT/500ML 1,000 ML IR ONE (07:45)
[2022-03-24] MEDS ORDERED: VERAPAMIL 5 MG/2 ML INJ ONE (07:45)
[2022-03-24] MEDS ORDERED: NITROGLYCERIN SYRINGE 3 ML ONE (07:46)
[2022-03-24] MEDS ORDERED: SODIUM CHLORIDE 0.9% 500 ML 500 ML IV SCH (08:00)
--- NOTE | 2022-03-24 08:27 | Progress Note ---
Assessment and Plan - Patient Problems (1) Syncope Current Visit: Yes Status: Acute Plan to address problem: Patient presented with exertional syncope, resuscitated in the field following bystander CPR. He has a history of myocardial infarction, and coronary stent placement 8 months ago, has been noncompliant with prescribed medical therapy, has continued to smoke cigarettes. Cardiac catheterization shows patent LAD stent, severe underlying cardiomyopathy with ejection fraction less than 15 to 20%, a mixed cardiomyopathy. We have recommended LifeVest monitoring to be fitted prior to discharge. We have started guideline directed medical therapy including dual oral antiplatelet therapy. Subjective Date of service: 03/24/22 Principal diagnosis: Syncope Interval history: Patient has no new cardiac complaints. Cardiac catheterization done today, via the right femoral approach, no complications. We found the proximal LAD stents to be widely patent, otherwise residual nonobstructive disease. The underlying left ventricular systolic dysfunction, with ejection fraction less than 15 to 20%, appears disproportionate to the degree of coronary artery disease. Objective Vital Signs Temp Pulse Resp BP Pulse Ox 03/24/22 03:55 98.1 F 72 18 139/85 91 03/24/22 00:00 100 03/23/22 23:44 97.9 F 64 16 132/97 100 03/23/22 19:35 98.0 F 73 16 134/101 92 03/23/22 16:27 98.2 F 71 18 133/95 91 03/23/22 12:14 99 03/23/22 11:40 98.0 F 72 18 151/102 95 03/23/22 11:06 77 156/109 - Physical Examination HEENT: Positive: PERRL Neck: Positive: neck supple Cardiac: Positive: Reg Rate and Rhythm Lungs: Positive: Decreased Breath Sounds Neuro: Positive: Grossly Intact Abdomen: Positive: Soft Skin: Positive: Clear Extremities: Absent: edema - Labs and Meds Cardiac Enzymes 03/23/22 Range/Units 10:52 CK-MB (CK-2) 9.8 H (0.0-4.0) ng/mL CBC 03/24/22 Range/Units 06:01 Hgb 12.8 (11.8-15.2) gm/dl Hct 39.5 (35.5-45.6) % Plt Count 296 (140-440) K/mm3 - Imaging and Cardiology EKG: report reviewed (EKG shows ST depressions in V4 V5 and V6, LVH and repolarization abnormalities)
[2022-03-24] MEDS ORDERED: MIDAZOLAM 2 MG/2 ML INJ ONE (08:31)
[2022-03-24] MEDS: fentaNYL 100 MCG/2 ML INJ ONE ×3 (08:38→08:42)
[2022-03-24] MEDS: LIDOCAINE (1%) 10 MG/1 ML VIAL 20 ML MDV ONE ×2 (08:39→08:40)
[2022-03-24] MEDS ORDERED: FUROSEMIDE 40 MG/4 ML INJ ONE (09:01)
--- NOTE | 2022-03-24 09:26 | Cardiac Catherization Report ---
DATE OF SERVICE: 03/24/2022 REASON FOR PROCEDURE: The patient is a 61-year-old man with a history of coronary artery disease and dilated cardiomyopathy, who presented with exertional syncope. He was referred for a cardiac catheterization for further assessment. PROCEDURES: 1. Left heart catheterization. 2. Selective left and right coronary angiography. 3. Left ventricular angiography. 4. Sedation time start 0834, end 0855. DESCRIPTION OF PROCEDURE: The patient was prepped and draped in a sterile fashion after informed consent. The right radial cath site was prepped and draped after negative Ezio's test. The right radial artery was entered using Seldinger technique followed by placement of a 6-Danish hydrophilic sheath. Routine radial cocktail was administered via the sheath. Selective left and right coronary angiography was performed using a #3.5 left Ravi and a #4 right Ravi. The pigtail catheter was used for left ventricular angiography. The catheters were then removed, sheath removed and hemostasis achieved using a TR band. The patient was returned to the postprocedure unit in stable condition. There were no complications. FINDINGS: HEMODYNAMICS: Left ventricular end diastolic pressure was 35-40, following coronary angiography. Ascending aortic pressure was 156/96. There was no significant pressure gradient on pullback across the aortic valve. CORONARY ANGIOGRAPHY: There was moderate to severe calcification of the left main coronary artery, but this vessel remained widely patent. The LAD was notable for a stent in its proximal segment extending from just after the ostium. The stented segment of the LAD was widely patent. A large first diagonal branch which originated within the stented segment remained patent with good flow, but contained a 20-30% narrowing in its proximal segment. After the proximal LAD stent, there was a long segment of mild atherosclerosis of the mid LAD, with an up to 40-50% luminal stenosis. The circumflex artery and its obtuse marginal branches were free of significant disease. The right coronary artery was a large, dominant system and also free of significant disease. The left ventricle was severely dilated, there was severe left ventricular systolic dysfunction, diffuse hypokinesis, left ventricular systolic ejection fraction less than 15-20%. CONCLUSION: 1. Single-vessel coronary artery disease as above. 2. Widely patent proximal left anterior descending stent, followed by mild nonobstructive disease of the mid segment. 3. Otherwise, no significant coronary disease in the circumflex and right coronary systems. 4. Severe dilated cardiomyopathy, severe left ventricular systolic dysfunction with diffuse hypokinesis, ejection fraction less than 15-20%. The severity of the left ventricular dysfunction is disproportionate to the degree of coronary artery disease. RECOMMENDATIONS: 1. Aggressive risk factor modification. 2. Medical therapy and other device therapies as indicated for severe, predominantly nonischemic cardiomyopathy. TID: [id number] RECEIPT: [id number] FELIPE/MOHSEN
[2022-03-24] MEDS ORDERED: traMADol 50 MG TAB PO PRN (09:30)
[2022-03-24] MEDS ORDERED: SODIUM CHLORIDE 0.9% 1000 ML 1,000 ML IV SCH (09:30)
--- NOTE | 2022-03-24 09:35 | Electrocardiograph Report ---
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
--- NOTE | 2022-03-24 09:40 | Electrocardiograph Report ---
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
[2022-03-24] MEDS ORDERED: CLOPIDOGREL 75 MG TAB PO SCH (10:00)
[2022-03-24] MEDS ORDERED: HEPARIN 5,000 UNIT/1 ML VIAL SUB-Q SCH (10:00)
--- NOTE | 2022-03-24 10:09 | Electrocardiograph Report ---
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
[2022-03-24] MEDS: LOSARTAN 50 MG TAB PO SCH (10:56)
[2022-03-24] MEDS: METOPROLOL TARTRATE 50 MG TAB PO SCH (10:56)
[2022-03-24] MEDS: SPIRONOLACTONE 25 MG TAB PO SCH (10:56)
[2022-03-24] MEDS: FAMOTIDINE 20 MG/2 ML INJ IV SCH (10:57)
--- NOTE | 2022-03-24 15:07 | Progress Note ---
Assessment and Plan Assessment and plan: -- NSTEMI (non-ST elevated myocardial infarction) Because of EKG findings patient being treated as NSTEMI Cardiology evaluated the patient Patient underwent cardiac catheterization today showed patent LAD stent cardiomyopathy ejection fraction 15 to 20% mixed cardiomyopathy cardiology recommended LifeVest monitor to be fitted prior to discharge continue current guideline directed medical therapy including dual antiplatelets follow- and secured LifeVest to monitor discharge Case management assisting to take care of LifeVest --Syncope and collapse/autonomic dysfunction Syncope work-up Echocardiogram and carotid duplex scan --Elevated lactic acid level No source of infection Probably secondary to cardiac compressions with the daughter for 5 minutes -- Hyperlipidemia Initiated on statins -- Polysubstance abuse Patient has marijuana and amphetamines on board Patient and daughter consult Daughter denies amphetamine use -- DVT prophylaxis On heparin and GI prophylaxis --Advance care planning Disease education conducted, care plan discussed, diagnosis discussed, prognosis discussed. Patient is full code. Patient acknowledges understanding and agreement with care plan. +30 minutes. We will closely monitor the patient and adjust the management as needed Plan of care reviewed with the patient and his nurse Case management to set up LifeVest prior to discharge Closely monitor the patient and adjust management as needed Discharge when patient is stable and when the LifeVest is fitted Plan of care reviewed with the patient and his nurse History Interval history: Have seen and examined the patient this afternoon Patient's chart and medications reviewed Patient underwent left heart catheterization today Findings consistent with patent stent and LV ejection fraction 15 to 20% Patient feels slightly better Upset about the cardiac diet vital signs reviewed Hospitalist Physical - Constitutional Vitals: Temp Pulse Resp BP Pulse Ox 98.1 F 72 18 139/85 91 03/24/22 03:55 03/24/22 03:55 03/24/22 03:55 03/24/22 03:55 03/24/22 03:55 General appearance: Present: no acute distress, well-nourished - EENT Eyes: Present: PERRL, EOM intact - Neck Neck: Present: supple, normal ROM - Respiratory Respiratory effort: normal Respiratory: bilateral: diminished, negative: rales, rhonchi, wheezing - Cardiovascular Rhythm: regular Heart Sounds: Present: S1 & S2 - Extremities Extremities: no ischemia, No edema - Abdominal General gastrointestinal: soft, non-tender, non-distended, normal bowel sounds - Integumentary Integumentary: Present: clear, warm - Psychiatric Psychiatric: appropriate mood/affect, cooperative - Neurologic Neurologic: CNII-XII intact, moves all extremities HEART Score - HEART Score Age: 45-65 Risk factors: 1-2 risk factors Troponin: Troponin T 0.075 ng/mL (0.00-0.029) H 03/23/22 10:52 Troponin: < normal limit - Critical Actions Critical Actions: 4-6 pts:12-16.6% risk of adverse cardiac event. Should be admitted Results - Labs CBC & Chem 7: 03/24/22 06:01 03/23/22 05:58 Labs: Laboratory Last Values WBC 8.3 K/mm3 (4.5-11.0) 03/23/22 05:58 RBC 4.24 M/mm3 (3.65-5.03) 03/23/22 05:58 Hgb 12.8 gm/dl (11.8-15.2) 03/24/22 06:01 Hct 39.5 % (35.5-45.6) 03/24/22 06:01 MCV 96 fl (84-94) H 03/23/22 05:58 MCH 31 pg (28-32) 03/23/22 05:58 MCHC 32 % (32-34) 03/23/22 05:58 RDW 14.4 % (13.2-15.2) 03/23/22 05:58 Plt Count 296 K/mm3 (140-440) 03/24/22 06:01 Lymph % (Auto) 30.3 % (13.4-35.0) 03/23/22 05:58 [place] % (Auto) 13.8 % (0.0-7.3) H 03/23/22 05:58 Eos % (Auto) 0.7 % (0.0-4.3) 03/23/22 05:58 Baso % (Auto) 0.4 % (0.0-1.8) 03/23/22 05:58 Lymph # (Auto) 2.5 K/mm3 (1.2-5.4) 03/23/22 05:58 [place] # (Auto) 1.1 K/mm3 (0.0-0.8) H 03/23/22 05:58 Eos # (Auto) 0.1 K/mm3 (0.0-0.4) 03/23/22 05:58 Baso # (Auto) 0.0 K/mm3 (0.0-0.1) 03/23/22 05:58 Seg Neutrophils % 54.8 % (40.0-70.0) 03/23/22 05:58 Seg Neutrophils # 4.5 K/mm3 (1.8-7.7) 03/23/22 05:58 PT 12.6 Sec. (12.2-14.9) 03/22/22 23:12 INR 0.86 (0.87-1.13) L 03/22/22 23:12 APTT 29.1 Sec. (24.2-36.6) 03/22/22 23:12 Heparin Anti-Xa Level 0.33 U.I./ml (0.3-0.7) 03/23/22 20:00 Sodium 137 mmol/L (137-145) 03/23/22 05:58 Potassium 4.2 mmol/L (3.6-5.0) 03/23/22 05:58 Chloride 98.9 mmol/L (98-107) 03/23/22 05:58 Carbon Dioxide 25 mmol/L (22-30) 03/23/22 05:58 Anion Gap 17 mmol/L 03/23/22 05:58 BUN 17 mg/dL (9-20) 03/23/22 05:58 Creatinine 0.8 mg/dL (0.8-1.3) 03/23/22 05:58 Estimated GFR > 60 ml/min 03/23/22 05:58 BUN/Creatinine Ratio 21 % 03/23/22 05:58 Glucose 127 mg/dL (75-100) H 03/23/22 05:58 Lactic Acid 1.80 mmol/L (0.7-2.0) 03/22/22 17:19 Calcium 9.3 mg/dL (8.4-10.2) 03/23/22 05:58 Total Bilirubin 0.70 mg/dL (0.1-1.2) 03/23/22 05:58 AST 42 units/L (5-40) H 03/23/22 05:58 ALT 30 units/L (7-56) 03/23/22 05:58 Alkaline Phosphatase 95 units/L (35-129) 03/23/22 05:58 Total Creatine Kinase 355 units/L (55-170) H 03/23/22 10:52 CK-MB (CK-2) 9.8 ng/mL (0.0-4.0) H 03/23/22 10:52 CK-MB (CK-2) Rel Index 2.7 (0-4) 03/23/22 10:52 Troponin T 0.075 ng/mL (0.00-0.029) H 03/23/22 10:52 Total Protein 7.0 g/dL (6.3-8.2) 03/23/22 05:58 Albumin 4.4 g/dL (3.9-5) 03/23/22 05:58 Albumin/Globulin Ratio 1.7 % 03/23/22 05:58 Triglycerides 57 mg/dL (2-149) 03/22/22 22:17 Cholesterol 236 mg/dL (50-199) H 03/22/22 22:17 LDL Cholesterol Direct 156 mg/dL (50-130) H 03/22/22 22:17 HDL Cholesterol 62 mg/dL (40-59) H 03/22/22 22:17 Cholesterol/HDL Ratio 3.80 % 03/22/22 22:17 Urine Color Yellow (Yellow) 03/22/22 17:19 Urine Turbidity Clear (Clear) 03/22/22 17:19 Urine pH 5.0 (5.0-7.0) 03/22/22 17:19 Ur Specific [place] 1.017 (1.003-1.030) 03/22/22 17:19 Urine Protein 100 mg/dl mg/dL (Negative) 03/22/22 17:19 Urine Glucose (UA) 50 mg/dL (Negative) 03/22/22 17:19 Urine Ketones Neg mg/dL (Negative) 03/22/22 17:19 Urine Blood Neg (Negative) 03/22/22 17:19 Urine Nitrite Neg (Negative) 03/22/22 17: Urine Bilirubin Neg (Negative) 03/22/22 17:19 Urine Urobilinogen < 2.0 mg/dL (<2.0) 03/22/22 17:19 Ur Leukocyte Esterase Neg (Negative) 03/22/22 17:19 Urine WBC (Auto) 4.0 /HPF (0.0-6.0) 03/22/22 17:19 Urine RBC (Auto) 3.0 /HPF (0.0-6.0) 03/22/22 17:19 U Epithel Cells (Auto) 1.0 /HPF (0-13.0) 03/22/22 17:19 Hyaline Casts 21 /LPF 03/22/22 17:19 Urine Mucus Few /HPF 03/22/22 17:19 Nasal Screen MRSA (PCR) Negative (Negative) 03/23/22 00:31 Urine Opiates Screen Presumptive negative 03/22/22 17:19 Urine Methadone Screen Presumptive negative 03/22/22 17:19 Ur Barbiturates Screen Presumptive negative 03/22/22 17:19 Ur Phencyclidine Scrn Presumptive negative 03/22/22 17:19 Ur Amphetamines Screen Presumptive positive 03/22/22 17:19 U Benzodiazepines Scrn Presumptive negative 03/22/22 17:19 Urine Cocaine Screen Presumptive negative 03/22/22 17:19 U Marijuana (THC) Screen Presumptive positive 03/22/22 17:19 Drugs of Abuse Note Disclamer 03/22/22 17:19 Microbiology: Microbiology 03/22/22 14:22 Peripheral/Venous Blood Culture - Preliminary NO GROWTH AFTER 48 HOURS 03/22/22 14:22 Peripheral/Venous Blood Culture - Preliminary NO GROWTH AFTER 48 HOURS [place]/IV: Voiding Method Toilet Active Medications - Current Medications Current Medications: Generic Name Dose Route Start Last Admin Trade Name Freq PRN Reason Stop Dose Admin Acetaminophen 650 mg 03/22/22 23:00 Acetaminophen 325 Mg Tab PO Q4H PRN Pain MILD(1-3)/Fever >100.5/VILLASENOR Aspirin 81 mg 03/23/22 10:00 03/24/22 10:56 Aspirin Ec 81 Mg Tab PO 81 mg QDAY TATYANA Administration Atorvastatin Calcium 40 mg 03/23/22 22:00 03/23/22 21:34 Atorvastatin 40 Mg Tab PO 40 mg QHS TATYANA Administration Clopidogrel Bisulfate 75 mg 03/24/22 10:00 03/24/22 10:56 Clopidogrel 75 Mg Tab PO 75 mg QDAY TATYANA Administration Famotidine 20 mg 03/24/22 22:00 Famotidine 20 Mg Tab PO BID TATYANA Furosemide 20 mg 03/25/22 10:00 Furosemide 20 Mg Tab PO QDAY TATYANA Heparin Sodium (Porcine) 5,000 unit 03/24/22 10:00 03/24/22 10:57 Heparin 5,000 Unit/1 Ml Vial SUB-Q 5,000 unit Q12HR TATYANA Administration Dextrose/Sodium Chloride 1,000 mls @ 100 mls/hr 03/22/22 23:00 03/23/22 23:16 D5ns IV 100 mls/hr DIRECT TATYANA Administration Sodium Chloride 1,000 mls @ 42 mls/hr 03/24/22 09:30 03/24/22 10:58 Nacl 0.9% 1000 Ml IV 03/24/22 19:29 42 mls/hr DIRECT TATYANA Administration Losartan Potassium 50 mg 03/23/22 12:00 03/24/22 10:56 Losartan 50 Mg Tab PO 50 mg QDAY TATYANA Administration Metoclopramide HCl 10 mg 03/22/22 23:00 Metoclopramide 10 Mg/2 Ml Inj IV Q6H PRN Nausea And Vomiting Metoprolol Tartrate 50 mg 03/23/22 12:00 03/24/22 10:56 Metoprolol Tartrate 50 Mg Tab PO 50 mg BID TATYANA Administration Morphine Sulfate 2 mg 03/22/22 23:00 03/23/22 11:07 Morphine 2 Mg/1 Ml Inj IV 2 mg Q4H PRN Administration Pain, Moderate (4-6) Ondansetron HCl 4 mg 03/22/22 23:00 Ondansetron 4 Mg/2 Ml Inj IV Q8H PRN Nausea And Vomiting Oxycodone/Acetaminophen 1 tab 03/22/22 22:07 Oxycodone /Acetaminophen 5-325mg Tab PO Q6H PRN Pain, Moderate (4-6) Sodium Chloride 10 ml 03/23/22 10:00 03/24/22 10:57 Sodium Chloride 0.9% 10 Ml Flush Syringe IV 10 ml BID TATYANA Administration Sodium Chloride 10 ml 03/22/22 23:00 Sodium Chloride 0.9% 10 Ml Flush Syringe IV PRN PRN LINE FLUSH Spironolactone 25 mg 03/23/22 12:00 03/24/22 10:56 Spironolactone 25 Mg Tab PO 25 mg QDAY TATYANA Administration Tramadol HCl 50 mg 03/24/22 09:30 Tramadol 50 Mg Tab PO Q4H PRN Pain, Mild (1-3)
[2022-03-24 18:27] VITALS: BP 129/91
--- NOTE | 2022-03-24 20:29 | Event Note ---
Date: 03/24/22 Patient left AMA
--- NOTE | 2022-03-24 20:31 | Discharge Summary ---
Providers - Providers Date of Admission: 03/22/22 22:07 Date of discharge: 03/24/22 Attending physician: BUDDY RAJAN 03/22/22 22:07 Consult to Physician [CONS] Routine Comment: Consulting Provider: MEJIA ROLDAN Physician Instructions: Reason For Exam: NSTEMI 03/24/22 09:16 Consult to Cardiac Rehabilitation [CONS] Routine Reason For Exam: Cardiac Rehab Evaluation Primary care physician: TECH[employer]ICAL SAL[employer] SUPPORT SPECIALIST Hospitalization Condition: Stable Hospital course: -- NSTEMI (non-ST elevated myocardial infarction) Because of EKG findings patient being treated as NSTEMI Cardiology evaluated the patient Patient underwent cardiac catheterization today showed patent LAD stent cardiomyopathy ejection fraction 15 to 20% mixed cardiomyopathy cardiology recommended LifeVest monitor to be fitted prior to discharge continue current guideline directed medical therapy including dual antiplatelets follow- and secured LifeVest to monitor discharge Case management assisting to take care of LifeVest --Syncope and collapse/autonomic dysfunction Syncope work-up Echocardiogram and carotid duplex scan --Elevated lactic acid level No source of infection Probably secondary to cardiac compressions with the daughter for 5 minutes -- Hyperlipidemia Initiated on statins -- Polysubstance abuse Patient has marijuana and amphetamines on board Patient and daughter consult Daughter denies amphetamine use -- DVT prophylaxis On heparin and GI prophylaxis --Advance care planning Disease education conducted, care plan discussed, diagnosis discussed, prognosis discussed. Patient is full code. Patient acknowledges understanding and agreement with care plan. +30 minutes. We will closely monitor the patient and adjust the management as needed Plan of care reviewed with the patient and his nurse Case management to set up LifeVest prior to discharge Closely monitor the patient and adjust management as needed Discharge when patient is stable and when the LifeVest is fitted Plan of care reviewed with the patient and his nurse Disposition: 07 LEFT AGAINST MEDICAL ADVICE Exam - Constitutional Vitals: Temp Pulse Resp BP Pulse Ox 97.4 F L 79 17 129/91 97 03/24/22 16:02 03/24/22 16:02 03/24/22 16:02 03/24/22 16:02 03/24/22 16:02 Plan Follow up with: PRIMARY CAREMD [Primary Care Provider] - 3-5 Days Forms: AMA Form
[2022-03-24] MEDS ORDERED: FAMOTIDINE 20 MG TAB PO SCH (22:00)
[2022-03-25] MEDS ORDERED: FUROSEMIDE 20 MG TAB PO SCH (10:00)
--- NOTE | 2022-03-25 13:57 | Event Note ---
Date: 03/25/22 Patient left AMA yesterday 03/24/2022 I was not informed, Patient called today and requested prescriptions of his medications I sent 7 prescriptions to [facility] pharmacy; Aspirin 81 mg p.o. daily Plavix 75 mg daily Metoprolol 50 mg twice a day Losartan 50 mg daily Spironolactone 25 mg daily Lipitor 40 mg p.o. nightly Percocet 325, 1 tablet every 6 hours as needed 14 pills I discussed with charge nurse Mr. Moncada Will inform the patient that he Is prescriptions and follow-up with his primary care physician and tow feeder per schedule
== END 2022-03-24 19:00 | disposition left against medical advice (07) | DRG 281 ==
LOC: ED 13:11 → 4A 22:07
PROVIDERS: ADMIT Internal Medicine; ATTEND Internal Medicine
PROC: 4A023N7 Measurement of Cardiac Sampling and Pressure, Left Heart, Percutaneous Approach (ICD-10-PCS; principal; 2022-03-24)
PROC: B2111ZZ Fluoroscopy of Multiple Coronary Arteries using Low Osmolar Contrast (ICD-10-PCS; 2022-03-24)
PROC: B2151ZZ Fluoroscopy of Left Heart using Low Osmolar Contrast (ICD-10-PCS; 2022-03-24)
DX: I21.4 Non-ST elevation (NSTEMI) myocardial infarction (principal); E87.2 Acidosis; I42.0 Dilated cardiomyopathy; R41.89 Other symptoms and signs involving cognitive functions and awareness; R55 Syncope and collapse; G90.8 Other disorders of autonomic nervous system; E78.2 Mixed hyperlipidemia; F19.10 Other psychoactive substance abuse, uncomplicated; Z95.5 Presence of coronary angioplasty implant and graft
CPT/HCPCS: 36415; 70450; 71045; 80053; 80061; 80307; 81001; 82140; 82550; 82553; 84484; 85014; 85018; 85025; 85049; 85520; 85610; 85730; 87040; 87641; 93005; 93306; 93458; G0378; J1815; J3490; C1894; C8929; J0696; J1644; J1940; J2250; J2270; J3010; J7030; J7040; J7042; Q9967